=== PATIENT | female | born 1980 | race Caucasian/White ===

== ENCOUNTER 2023-04-17 09:18 | Emergency (ER) | payer OTHER, SELFPAY | END 2023-04-17 09:55 | disposition home or self-care (01) | LOC: EXPTROY 18:46 | PROVIDERS: Emergency Provider Nurse Practitioner Family; PCP Physician Assistant Medical | DX: S30.861A Insect bite (nonvenomous) of abdominal wall, initial encounter (principal); W57.XXXA Bitten or stung by nonvenomous insect and other nonvenomous arthropods, initial encounter | CPT/HCPCS: 99213; G0463 ==

== ENCOUNTER 2023-08-25 12:02 | Emergency (ER) | payer OTHER, SELFPAY ==
[2023-08-25 12:23] VITALS: BP 152/64; PULSE 92; RESP 16; TEMP 36.7; O2SAT 98
--- NOTE | 2023-08-25 13:04 | ED.GENADULT ---
HPI - General Adult General Chief complaint: Upper Respiratory Infection Stated complaint: Sore Throat,Headache,Bilateral Ear Irritation Time Seen by Provider: 08/25/23 13:04 Source: patient Mode of arrival: ambulatory Limitations: no limitations History of Present Illness HPI narrative: Patient presents to [facility] with complaints of fever of 100 this morning, headaches, chills, body aches, sore throat, and bilateral ear pain. patient took ibuprofen before coming in for the fever. symptoms started Saturday night and have gotten worse. patient's daughter who she lives at home with was recently sick with similar symptoms. Related Data Home Medications Medication Instructions Recorded Confirmed cholecalciferol (vitamin D3) 50 50 mcg PO DAILY 02/15/23 08/25/23 mcg (2,000 unit) capsule Allergies Allergy/AdvReac Type Severity Reaction Status Date / Time No Known Allergies Allergy Verified 08/25/23 12:50 Review of Systems Review of Systems: CONSTITUTIONAL: positive fever, chills, and sweats. EYES: Denies visual changes, redness, or discharge. ENT: Denies rhinorrhea, congestion, positive sore throat, positive bilateral ear pain. CARDIOVASCULAR: Denies chest pain, palpitations, or edema. RESPIRATORY: Denies cough or dyspnea. GASTROINTESTINAL: Denies abdominal pain, nausea, vomiting, or diarrhea. GENITOURINARY: Denies dysuria or hematuria. SKIN: Denies rash or itching. MUSCULOSKELETAL: Denies back pain, joint pain, or myalgia. NEUROLOGIC: positive headache, negative numbness, or weakness. PSYCHIATRIC: Denies anxiety or depression. [facility] Past Medical History Medical History Celiac disease Hypothyroidism Vitamin B12 deficiency Vitamin D deficiency Surgical History Surgical History History of cholecystectomy History of esophagogastroduodenoscopy (EGD) Family History Family History Father Cerebrovascular accident Throat cancer Grandparent Stomach cancer Social History Social History Smoking status: Never smoker Alcohol intake: current Drinks per week: 3 Substance use: never Substance use type: does not use Living arrangements: with family Occupation/Education: other Additional occupation/education comments: house Gender identity (if verbalized by the patient): Female Comments at the time of my signature I agree with nursing past medical history, surgical, social, and family history. There is no relevant family history pertinent to the presenting complaint. Exam Narrative: GENERAL: Well-appearing, well-nourished, and in no acute distress. HEAD: Normocephalic, atraumatic. positive generalized headache. EYES: PERRLA and EOMI. ENT: Nares clear, no rhinorrhea or epistaxis. Mucous membranes moist. posterior oropharynx erythema, tonsils at 2+, no exudate. bilateral ears tympanic membranes visualized with clear effusion, bony structures visualized without erythema or edema. NECK: Supple. bilateral submandibular lymphadenopathy. CHEST: Clear to auscultation. No respiratory distress. HEART: Regular rate and rhythm. No murmur heard. Normal peripheral pulses. ABDOMEN: Soft, nontender, nondistended. EXTREMITIES: Normal range of motion. No edema. SKIN: Warm, dry, no rash. NEURO: No focal deficits. Alert and oriented x3. Course Course Level of Care: Express Care Visit Reevaluation(s) Reevaluation #1: Re-evaluated patient notified her that her swabs were all negative today. We will send the throat swab to the lab for culture and if it does come back positive we will call her and antibiotics at that time. Discussed with patient at this time it is just viral and symptomatic relief. Patient verbalized understanding denies any other questions or c
== END 2023-08-25 13:36 | disposition home or self-care (01) ==
PROVIDERS: Emergency Provider Nurse Practitioner Family; PCP Internal Medicine
DX: J06.9 Acute upper respiratory infection, unspecified (principal); E03.9 Hypothyroidism, unspecified; Z20.822 Contact with and (suspected) exposure to COVID-19
CPT/HCPCS: 87081; 87426; 87804; 87880; 99213; C9803; G0463

== ENCOUNTER 2024-05-21 07:43 | Outpatient (CLI) | payer OTHER, SELFPAY ==
--- NOTE | ~2024-05-21 | MR_ITS ---
MRI of the left knee Clinical history: Injury Technique: Coronal proton density and proton density-weighted images, sagittal proton-density and T2 fat-sat images, and axial proton-density fat-saturated images were acquired. Findings: Anterior and posterior cruciate ligaments are intact. Medial collateral ligament and the la teral collateral ligament complex are intact. There is minimal soft tissue edema about the MCL. Popli teus tendon is intact. Medial and lateral menisci are intact, without evidence of tear. Articular cartilage is well preserved throughout the knee. Bone marrow signals are unremarkable. Extensor mechanism is intact. No joint effusion or Best's cyst. Impression: Mild soft tissue edema about the MCL could reflect grade 1 sprain. Reviewed, dictated and finalized at [facility]. Impression: Mild soft tissue edema about the MCL could reflect grade 1 sprain.
== END 2024-05-21 07:44 ==
PROVIDERS: PCP Physician Assistant Medical; Visit Provider Physician Assistant Medical
DX: S89.92XA Unspecified injury of left lower leg, initial encounter (principal); M79.89 Other specified soft tissue disorders; X58.XXXA Exposure to other specified factors, initial encounter
CPT/HCPCS: 73721